=== PATIENT | female | born 1965 | race Caucasian/White ===

== ENCOUNTER 2017-07-15 08:27 | Day surgery (SDC) | payer OTHER ==
[~2017-07-15] VITALS: Ht 162.6 cm; Wt 84.0 kg
== END 2017-07-15 12:40 | disposition home or self-care (01) ==
LOC: ORSCSDS 08:27
PROVIDERS: Orthopaedic Surgery
PROC: 0QSH04Z Reposition Left Tibia with Internal Fixation Device, Open Approach (ICD-10-PCS; principal; 2017-07-15 09:30)
DX: S82.52XA Displaced fracture of medial malleolus of left tibia, initial encounter for closed fracture (principal); W17.81XA Fall down embankment (hill), initial encounter
CPT/HCPCS: C1713; C1769; J0690; J1100; J1885; J2250; J2405; J3010

== ENCOUNTER → 2019-01-23 | Outpatient (CLI) | payer OTHER | END | disposition home or self-care (01) | LOC: LAB SHORT 13:01 → LAB EV 13:01 | DX: N39.0 Urinary tract infection, site not specified (principal) | CPT/HCPCS: 87086 ==

== ENCOUNTER → 2019-02-02 | Outpatient (CLI) | payer OTHER | END | disposition home or self-care (01) | LOC: LAB 19:30 → LAB SHORT 19:30 | PROVIDERS: Nurse Practitioner | DX: Z01.419 Encounter for gynecological examination (general) (routine) without abnormal findings (principal) | CPT/HCPCS: G0145 ==

== ENCOUNTER → 2020-02-23 | Outpatient (CLI) | payer OTHER | LOC: LAB 16:01 | PROVIDERS: Nurse Practitioner | DX: Z01.419 Encounter for gynecological examination (general) (routine) without abnormal findings (principal) | CPT/HCPCS: G0145 ==

== ENCOUNTER → 2023-07-05 | Outpatient (CLI) | payer OTHER | END | disposition home or self-care (01) | LOC: LAB 16:05 → LAB SHORT 16:05 | DX: R30.0 Dysuria (principal) | CPT/HCPCS: 87086; 87147 ==